=== PATIENT | female | born 1955 | race Caucasian/White ===

== ENCOUNTER 2017-10-10 17:32 | Emergency (ER) | payer MEDICAID ==
[~2017-10-10] VITALS: Ht 157.5 cm; Wt 48.9 kg
[2017-10-10 18:42] LABS: BASOPHILS # (AUTO) 0.05 x10^3/uL (0-0.1); BASOPHILS % (AUTO) 0 % (0-1); EOSINOPHILS % (AUTO) 2 % (1-7); LYMPHOCYTES % (AUTO) 16 % (22-44); MD NO; MEAN CORPUSCULAR HEMOGLOBIN 25.8 pg (27.0-34.8); MEAN CORPUSCULAR HGB CONC 32.6 g/dL (32.4-35.8); MEAN CORPUSCULAR VOLUME 78.9 fL (80-100); MEAN PLATELET VOLUME 8.6 fL (7.4-10.4); MONOCYTES # (AUTO) 0.47 x10^3/uL (0.2-0.8); MONOCYTES % (AUTO) 4 % (2-9); NEUTROPHILS # (AUTO) 9.12 x10^3/uL (1.8-6.8); NEUTROPHILS % (AUTO) 78 % (42-75); PLATELET COUNT 379 x10^3/uL (130-400); RED BLOOD COUNT 5.13 x10^6/uL (3.82-5.3); RED CELL DISTRIBUTION WIDTH 15.9 % (9.6-15.2)
[2017-10-10 18:43] LABS: MICROSCOPIC AUTO
[2017-10-10 18:47] LABS: CULTURE INDICATED? YES
[2017-10-10 18:49] LABS: ALANINE AMINOTRANSFERASE 39 U/L (12-78); ALBUMIN 3.3 g/dL (3.4-5.0); ANION GAP 7 mmol/L (5-15); CALCIUM 9.2 mg/dL (8.5-10.1); CHLORIDE 102 mmol/L (98-107)
[2017-10-10 18:51] LABS: ALKALINE PHOSPHATASE 138 U/L (45-117); BILIRUBIN,TOTAL 0.2 mg/dL (0.2-1.0); TOTAL PROTEIN 7.7 g/dL (6.4-8.2)
[2017-10-10 19:12] VITALS: BP 187/108
== END 2017-10-10 20:16 | disposition home or self-care (01) ==
LOC: ED 20:11
DX: N30.00 Acute cystitis without hematuria (principal); I10 Essential (primary) hypertension; F17.210 Nicotine dependence, cigarettes, uncomplicated; Z85.41 Personal history of malignant neoplasm of cervix uteri
CPT/HCPCS: 36415; 80053; 81001; 83690; 85025; 87077; 87086; 87186; 99284

== ENCOUNTER 2021-06-16 23:42 | Observation (INO) | payer MEDICARE ==
[~2021-06-16] VITALS: Ht 157.5 cm; Wt 50.0 kg
[2021-06-17] MEDS ORDERED: ASPIRIN 81 MG TABLET CHEW PO ONE
--- NOTE | 2021-06-17 00:26 | NUR ---
BIBA FOR CP 01/13 THAT STARTED 3-4 DAYS AGO, PT DESCRIBES PAIN CRUSHING IN MIDDLE CHEST THAT RADIATES TO BACK WITH INTERMITTENT NUMBNESS AND TINGLING. PT GOT 324 ASPIRIN FROM EMS AND HAS PIV PLACED.
[2021-06-17] MEDS ORDERED: PLEASE ENTER HEIGHT AND WEIGHT MC SCH (00:30)
[2021-06-17 00:37] LABS: BASOPHILS % (AUTO) 0 % (0-1); EOSINOPHILS % (AUTO) 18 % (1-7); LYMPHOCYTES % (AUTO) 11 % (22-44); MEAN CORPUSCULAR HEMOGLOBIN 23.5 pg (27.0-34.8); MEAN CORPUSCULAR HGB CONC 32.7 g/dL (32.4-35.8); MEAN PLATELET VOLUME 7.5 fL (7.4-10.4); MONOCYTES % (AUTO) 3 % (2-9); NEUTROPHILS % (AUTO) 68 % (42-75); PLATELET COUNT 406 x10^3/uL (130-400); RED BLOOD COUNT 4.76 x10^6/uL (3.82-5.3); RED CELL DISTRIBUTION WIDTH 18.7 % (9.6-15.2)
[2021-06-17 00:46] LABS: ALANINE AMINOTRANSFERASE 20 U/L (12-78); ALBUMIN 2.9 g/dL (3.4-5.0); ANION GAP 8 mmol/L (5-15); CALCIUM 8.4 mg/dL (8.5-10.1); CHLORIDE 101 mmol/L (98-107); CREATININE 0.67 mg/dL (0.55-1.02)
[2021-06-17 00:51] LABS: ALKALINE PHOSPHATASE 107 U/L (45-117); BILIRUBIN,TOTAL 0.3 mg/dL (0.2-1.0); TOTAL PROTEIN 6.9 g/dL (6.4-8.2); TROPONIN I < 0.015 ng/mL (0.000-0.045)
[2021-06-17 01:08] LABS: OVALOCYTES 1+
[2021-06-17 01:10] LABS: ANISOCYTOSIS 2+; MICROCYTOSIS 2+
[2021-06-17 01:11] LABS: <PLATELET ESTIMATE> INCREASED; <PLT MORPHOLOGY> NORMAL PLT MORPH
--- NOTE | 2021-06-17 03:16 | NUR ---
REPORT TO PRAVEEN SERVIN
--- NOTE | 2021-06-17 04:07 | NUR ---
PT UP TO BATHROOM, STEADY AND ABLE TO AMBULATE.
[2021-06-17] MEDS ORDERED: ONDANSETRON 2MG/ML, 2ML IVPush ONE (04:30)
[2021-06-17] MEDS ORDERED: MORPHINE SULFATE 4 MG/ML, 1ML IVPush PRN (04:30)
[2021-06-17] MEDS ORDERED: morphine SULFATE 10 MG/ML, 1ML IV PRN (05:00)
[2021-06-17] MEDS ORDERED: ASPIRIN 325 MG TABLET EC PO ONE (05:00)
[2021-06-17] MEDS ORDERED: OXYcodone IR 5MG TABLET PO PRN (05:00)
[2021-06-17] MEDS ORDERED: morphine SULFATE 10 MG/ML, 1ML IVPush PRN (05:00)
[2021-06-17] MEDS ORDERED: NITROGLYCERIN 0.4 MG BOTTLE (25 TABS) SL PRN (05:00)
[2021-06-17] MEDS ORDERED: ENOXAPARIN 40 MG/0.4 ML SQ SCH (05:00)
[2021-06-17] MEDS ORDERED: NITROGLYCERIN 0.4 MG/SPRAY SL PRN (05:00)
[2021-06-17] MEDS ORDERED: ONDANSETRON 2MG/ML, 2ML IVPB PRN (05:00)
[2021-06-17] MEDS ORDERED: ACETAMINOPHEN 325 MG TABLET PO PRN (05:00)
--- NOTE | 2021-06-17 06:17 | NUR ---
PT SLEEPING IN BED, WAITING FOR ROOM UPSTAIRS, NO ACUTE DISTRESS.
[2021-06-17 06:31] LABS: MEAN CORPUSCULAR HEMOGLOBIN 23.3 pg (27.0-34.8); MEAN CORPUSCULAR HGB CONC 32.1 g/dL (32.4-35.8); MEAN PLATELET VOLUME 7.6 fL (7.4-10.4); PLATELET COUNT 438 x10^3/uL (130-400); RED BLOOD COUNT 5.08 x10^6/uL (3.82-5.3); RED CELL DISTRIBUTION WIDTH 18.3 % (9.6-15.2)
[2021-06-17 06:34] LABS: ANION GAP 5 mmol/L (5-15); CALCIUM 8.9 mg/dL (8.5-10.1); CHLORIDE 102 mmol/L (98-107)
[2021-06-17 06:40] LABS: CHOL/HDL RATIO 3.3; CHOLESTEROL, TOTAL 203 mg/dL (140-239); CREATININE 0.63 mg/dL (0.55-1.02); HDL CHOL % 30 % (28-40); HDL CHOLESTEROL (DIRECT) 61 mg/dL (40-60); LDL CHOLESTEROL,CALCULATED 120 mg/dL (54-169); TRIGLYCERIDES 112 mg/dL (50-200); TROPONIN I < 0.015 ng/mL (0.000-0.045); VLDL CHOLESTEROL 22 mg/dL (0-25)
--- NOTE | 2021-06-17 06:48 | NUR ---
REPORT GIVEN TO HEMAL SERVIN.
[2021-06-17] MEDS ORDERED: ENOXAPARIN 40 MG/0.4 ML ONE (07:21)
[2021-06-17] MEDS ORDERED: ASPIRIN 325 MG TABLET EC ONE (07:22)
--- NOTE | 2021-06-17 07:43 | NUR ---
PT IN BATHROOM. PT ABLE TO AMBULATE WITH STEADY GAIT TO BATHROOM
--- NOTE | 2021-06-17 07:56 | NUR ---
PT GOING FOR NUC MED STUDY AT THIS TIME.
[2021-06-17] MEDS ORDERED: REGADENOSON 0.4 MG/5 ML SYRINGE ONE (08:02)
--- NOTE | 2021-06-17 08:28 | NUR ---
report to caity hernandez
[2021-06-17] MEDS ORDERED: SODIUM CHLORIDE FLUSH 10ML SYR IVF SCH (09:00)
[2021-06-17] MEDS ORDERED: NITR100C PO (09:52)
[2021-06-17] MEDS ORDERED: ALBU90AE2 INH (09:52)
[2021-06-17] MEDS ORDERED: LISI10TA19 PO ×2 (09:52→14:49)
[2021-06-17] MEDS ORDERED: NICO2GUM5 PO (09:52)
[2021-06-17] MEDS ORDERED: BUPR75TA6 PO (09:52)
[2021-06-17 11:10] VITALS: BP 158/91
[2021-06-17 14:31] VITALS: BP 146/93
[2021-06-17] MEDS ORDERED: PANT40GR PO (14:51)
[2021-06-17] MEDS ORDERED: LISINOPRIL 10 MG TABLET PO SCH (15:00)
[2021-06-17] MEDS ORDERED: OMNIPAQUE 350 MG/ML, 100ML BOTTLE ONE (15:15)
[2021-06-17 15:26] VITALS: BP 145/84
[2021-06-17] MEDS ORDERED: FUROSEMIDE 20 MG/2 ML IV ONE (18:00)
[2021-06-17] MEDS ORDERED: POTASSIUM CHLORIDE 20 MEQ TAB.ER.PRT PO ONE (18:00)
[2021-06-18] MEDS ORDERED: ASPIRIN 325 MG TABLET EC PO SCH (06:00)
== END 2021-06-17 18:40 | disposition home or self-care (01) ==
LOC: ED 23:45 → EDIP 06-17 04:30 → INTOOBSV 06-17 04:30 → 5SO 06-17 09:37
PROVIDERS: ADMIT Student in an Organized Health Care Education/Training Program; ATTEND Internal Medicine
DX: R07.89 Other chest pain (principal); D72.829 Elevated white blood cell count, unspecified; D47.3 Essential (hemorrhagic) thrombocythemia; K21.9 Gastro-esophageal reflux disease without esophagitis; J43.9 Emphysema, unspecified; I10 Essential (primary) hypertension; Z85.51 Personal history of malignant neoplasm of bladder; Z85.41 Personal history of malignant neoplasm of cervix uteri; Z87.891 Personal history of nicotine dependence; Z88.0 Allergy status to penicillin; Z87.892 Personal history of anaphylaxis; Z79.899 Other long term (current) drug therapy
CPT/HCPCS: 36415; 71045; 71275; 78452; 80053; 80061; 84443; 84484; 85025; 85027; 93005; 93017; 93306; 96372; 96374; 99285; A9502; G0378; J1650; J1940; J2785; Q9967; 80048